=== PATIENT | male | born 1970 | race Caucasian/White ===

== ENCOUNTER → 2016-04-30 | Outpatient (CLI) | payer OTHER ==
[~2016-04-30] MED LIST: ALBUAER2 INH; ASPEC81 PO; ATOR10TA88 PO; BUSP-8 PO; CYAN100020 PO; EFF/375 PO; INSUINJ SC; INSUINJ17 SC; LISI-461 PO; LORA-741 PO; PRLSR20 PO
--- NOTE | 2016-04-30 07:34 | DIAGNOSTIC IMAGING REPORT ---
RENAL ULTRASOUND CLINICAL HISTORY: Renal cyst. COMPARISON STUDY: Abdominal ultrasound January 30, 2013. TECHNIQUE: Sonography of the kidneys and the urinary bladder was performed. FINDINGS: This exam is compromised by suboptimal penetration. The right kidney measures 11.8 x 5.9 x 5.7 cm and the left measures 11.3 x 5.8 x 6.5 cm. There is no definite hydronephrosis. Several hypoechoic structures within each renal sinus are similar to exam of January 30, 2013 and likely reflect parapelvic cysts. There is mild to moderate renal cortical thinning. There is suspected fatty infiltration of the liver. No bladder abnormalities are identified although the bladder is underdistended. IMPRESSION: 1. No change in hypoechoic structures within each renal sinus since exam of January 30, 2013. The findings favor parapelvic cysts. 2. Study compromised by suboptimal penetration. 3. Renal cortical thinning. 4. Suspected fatty liver. Electronically signed by: Jonh Villa M.D. 04/30/2016 7:33 AM Dictated Date/Time: 04/30/2016 7:30 AM
== END | disposition home or self-care (01) ==
LOC: C.ULTR 06:54
PROVIDERS: ATTEND Urology
DX: N28.1 Cyst of kidney, acquired (principal)

== ENCOUNTER → 2016-05-03 | Outpatient (CLI) | payer OTHER ==
[2016-05-03 10:08] LABS: ESTIMATED AVERAGE GLUCOSE 186 mg/dl; HA1C FLAG Normal (Normal)
== END | disposition home or self-care (01) ==
LOC: C.LAB 06:44
PROVIDERS: ATTEND Nurse Practitioner Family
DX: E11.49 Type 2 diabetes mellitus with other diabetic neurological complication (principal)

== ENCOUNTER → 2016-06-07 | Outpatient (CLI) | payer OTHER ==
--- NOTE | 2016-06-07 08:36 | DIAGNOSTIC IMAGING REPORT ---
CHEST CT WITHOUT CONTRAST CT DOSE: 1300.89 mGy.cm HISTORY: R07.81 Rib pain on right side The patient complains of sporadic s TECHNIQUE: Multiaxial CT images of the chest were performed without contrast. COMPARISON: None. FINDINGS: The lungs are clear. The mediastinal vascular structures are within normal limits. No mediastinal or hilar lymphadenopathy. No pleural effusion or pneumothorax. Limited views of the upper abdomen demonstrate a normal liver and spleen. IMPRESSION: No acute process. Electronically signed by: Lance Monroy M.D. 06/07/2016 8:35 AM Dictated Date/Time: 06/07/2016 8:30 AM
== END | disposition home or self-care (01) ==
LOC: C.CTS 08:15
PROVIDERS: ATTEND Physician Assistant
DX: R07.81 Pleurodynia (principal)

== ENCOUNTER → 2016-06-26 | Outpatient (CLI) | payer OTHER ==
[~2016-06-26] MED LIST changes: +ATOR10TA82 PO; -ATOR10TA88 PO
[2016-06-26 10:06] LABS: ALT/SGPT 71 U/L (12-78); AST/SGOT 33 U/L (15-37); BLOOD UREA NITROGEN 18 mg/dl (7-18); BUN/CREATININE RATIO 14.6 (10-20); CALCIUM 8.5 mg/dl (8.5-10.1); CARBON DIOXIDE 25 mmol/L (21-32); CHLORIDE 106 mmol/L (98-107); CHOLESTEROL 163 mg/dl (0-200); GLUCOSE 210 mg/dl (70-99); POTASSIUM 3.8 mmol/L (3.5-5.1); SODIUM 139 mmol/L (136-145); TRIGLYCERIDES 148 mg/dl (0-150); VERY LOW DENSITY LIPOPROT CALC 30 mg/dl
[2016-06-26 10:16] LABS: ALB/GLOB RATIO 1.2 (0.9-2); ALKALINE PHOSPHATASE 120 U/L (45-117); CHOLESTEROL/HDL RATIO 3.9; HDL CHOLESTEROL 42 mg/dl; LDL CHOLESTEROL CALCULATED 91 mg/dl
== END | disposition home or self-care (01) ==
LOC: C.LAB 07:18
PROVIDERS: ATTEND Nurse Practitioner Family
DX: E11.65 Type 2 diabetes mellitus with hyperglycemia (principal)

== ENCOUNTER → 2016-07-03 | Outpatient (CLI) | payer OTHER ==
--- NOTE | 2016-07-03 08:48 | DIAGNOSTIC IMAGING REPORT ---
RIGHT ELBOW 3 VIEWS HISTORY: M25.421 Elbow effusion, [id number] Right COMPARISON: None. FINDINGS: There is no fracture or dislocation. Mild posterior soft tissue swelling. No radiopaque foreign bodies. No elbow effusion. IMPRESSION: Mild posterior soft tissue swelling. No fractures. No elbow effusion. Electronically signed by: Delfino Ortega M.D. 07/03/2016 8:46 AM Dictated Date/Time: 07/03/2016 8:44 AM
== END | disposition home or self-care (01) ==
LOC: C.RAD1850 08:32
PROVIDERS: ATTEND Physician Assistant
DX: M25.421 Effusion, right elbow (principal)

== ENCOUNTER → 2016-07-17 | Outpatient (CLI) | payer OTHER ==
--- NOTE | 2016-07-17 08:07 | DIAGNOSTIC IMAGING REPORT ---
KUB CLINICAL HISTORY: N20.0 Calculus of [id number] Renal cyst pain COMPARISON STUDY: No previous studies for comparison. FINDINGS: The soft tissues, psoas shadows, renal outlines and intestinal gas pattern appear normal. There is no evidence for bowel obstruction. No abnormal abdominal calcifications are seen. IMPRESSION: Normal study. Electronically signed by: Lance Monroy M.D. 07/17/2016 8:06 AM Dictated Date/Time: 07/17/2016 8:06 AM
[2016-07-17 09:53] LABS: ESTIMATED AVERAGE GLUCOSE 200 mg/dl; HA1C FLAG Normal (Normal)
== END | disposition home or self-care (01) ==
LOC: C.RAD 07:31
PROVIDERS: ATTEND Nurse Practitioner Family
DX: N20.0 Calculus of kidney (principal); N28.1 Cyst of kidney, acquired; N39.0 Urinary tract infection, site not specified; E11.49 Type 2 diabetes mellitus with other diabetic neurological complication

== ENCOUNTER → 2016-08-23 | Outpatient (CLI) | payer OTHER ==
--- NOTE | 2016-08-23 10:18 | DIAGNOSTIC IMAGING REPORT ---
MRI OF THE RIGHT ELBOW WITHOUT IV CONTRAST CLINICAL HISTORY: Right upper extremity numbness. 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 Medial elbow pain. Elbow injury several weeks ago. COMPARISON STUDY: Radiographs of the right elbow dated 07/03/2016. TECHNIQUE: MRI of the right elbow was performed utilizing various T1 and T2-weighted sequences in the axial, sagittal, and coronal planes. IV contrast was not administered for this examination. FINDINGS: Normal marrow signal intensity is preserved throughout the visualized bony structures. There is no MRI evidence of fracture. A trace joint effusion is identified. The common extensor and common flexor tendons appear intact. The radial collateral ligament is preserved. There is questionable partial thickness tearing of the ulnar collateral ligament at the humeral insertion. There is also questionable fluid undercutting the ulnar attachment of the ulnar collateral ligament. Subcutaneous soft tissue edema is present along the medial aspect of the elbow. The ulnar nerve appears slightly thickened and edematous posterior to the medial humeral epicondyle on axial images 11 through 16. The triceps tendon at its insertion and the biceps tendon appear preserved. The regional musculature is normal in bulk and signal intensity. IMPRESSION: 1. The ulnar nerve appears mildly thickened and edematous as it passes posterior to the elbow joint. Given the history of medial elbow trauma this may represent contusion of the nerve. Clinical correlation will be required. 2. Question partially thickness tearing of the ulnar collateral ligament. 3. No fracture is seen. 4. Trace joint effusion is identified. Dictated: 08/23/2016 9:19 AM Transcribed: 08/23/2016 10:17 AM [place] Electronically signed by: Stefan Escalera M.D. 08/23/2016 10:22 AM Dictated Date/Time: 08/23/2016 9:19 AM
== END | disposition home or self-care (01) ==
LOC: C.MRIBC 08:23
PROVIDERS: ATTEND Physician Assistant
DX: M25.421 Effusion, right elbow (principal); R29.898 Other symptoms and signs involving the musculoskeletal system; R20.0 Anesthesia of skin

== ENCOUNTER → 2016-11-20 | Outpatient (CLI) | payer OTHER ==
[~2016-11-20] MED LIST changes: -ATOR10TA82 PO; +ATOR10TA88 PO
[2016-11-20 12:59] LABS: ESTIMATED AVERAGE GLUCOSE 177 mg/dl; HA1C FLAG Normal (Normal)
== END | disposition home or self-care (01) ==
LOC: C.LABPBG 09:44
PROVIDERS: ATTEND Nurse Practitioner Family
DX: E11.49 Type 2 diabetes mellitus with other diabetic neurological complication (principal)

== ENCOUNTER → 2017-04-02 | Outpatient (CLI) | payer OTHER ==
[~2017-04-02] MED LIST changes: +ATOR10TA82 PO; -ATOR10TA88 PO
[2017-04-02 10:04] LABS: HEMOGLOBIN A1C 10.4 % (4.5-5.6)
[2017-04-02 10:07] LABS: ALBUMIN 3.9 gm/dl (3.4-5.0); ALT/SGPT 64 U/L (12-78); AST/SGOT 19 U/L (15-37); BLOOD UREA NITROGEN 14 mg/dl (7-18); CALCIUM 8.7 mg/dl (8.5-10.1); CARBON DIOXIDE 25 mmol/L (21-32); CREATININE 1.14 mg/dl (0.60-1.40); GLUCOSE 289 mg/dl (70-99); POTASSIUM 3.7 mmol/L (3.5-5.1); SODIUM 134 mmol/L (136-145)
[2017-04-02 10:10] LABS: ALKALINE PHOSPHATASE 169 U/L (45-117); TOTAL PROTEIN 7.2 gm/dl (6.4-8.2)
== END | disposition home or self-care (01) ==
LOC: C.LAB 06:50
PROVIDERS: ATTEND Internal Medicine
DX: E11.49 Type 2 diabetes mellitus with other diabetic neurological complication (principal); E11.65 Type 2 diabetes mellitus with hyperglycemia; E55.9 Vitamin D deficiency, unspecified

== ENCOUNTER 2017-04-22 07:02 | Emergency (ER) | payer OTHER ==
[~2017-04-22] VITALS: Ht 185.4 cm; Wt 158.1 kg
[2017-04-22 07:06] VITALS: TEMP 36.7; Ht 185.4 cm; Wt 158.1 kg
[2017-04-22] MEDS ORDERED: SODIUM CHLORIDE 0.9% 1000ML 1,000 ML IV STA (07:25)
--- NOTE | 2017-04-22 07:43 | EMERGENCY ROOM VISIT NOTE ---
History Report prepared by [place]: Kaykay Mcdaniel Under the Supervision of: Dr. Brittni Shaw M.D. First contact with patient: 07:14 Chief Complaint: ABDOMINAL PAIN Stated Complaint: SEVERE ABDOMINAL PAIN,BACK PAIN,LEFT ARM Nursing Triage Summary: pain in lower abdomen that radiates into left side of back. pain is more intense when I eat. no vomiting. symptoms started on saturday History of Present Illness The patient is a 46 year old male who presents to the Emergency Room with complaints of constant left sided back pain beginning four days ago. The patient states his pain radiates to his abdomen and groin area. He also reports abdominal pain, diarrhea, chest pain, shortness of breath, cough, intermittent left arm tingling, and nausea. He denies any swelling in his scrotum, urinary burning, blood in his urine, and fever. The patient reports he feels nauseous and his pain worsens when he eats. He denies any change in his chest pain, shortness of breath, or arm tingling when he exerts himself. The patient states his pain in back is relieved with standing. The patient states he has a history of back surgeries. He reports his pain feels unlike the previous times he had back problems. The patient is a former smoker and states he quit smoking about 30 years ago. The patient has a history of diabetes and takes insulin. Source of History: patient Onset: 4 days ago Position: back (lower) Quality: other (radiates) Timing: constant Modifying Factors (Relieving): other (standing) Associated Symptoms: + cough, + chest pain, + abdominal pain, + back pain, + diarrhea, No fevers, No urinary symptoms Review of Systems See HPI for pertinent positives & negatives. A total of 10 systems reviewed and were otherwise negative. Past Medical & Surgical Medical Problems: (1) Diabetes Family History Patient reports no known family medical history. Social History Smoking Status: Former Smoker Marital Status: Housing Status: lives with significant other Occupation Status: unemployed Current/Historical Medications Scheduled Aspirin (Aspirin Ec), 81 MG PO DAILY Atorvastatin (Lipitor), 10 MG PO DAILY Buspirone Hcl (Buspirone Hcl), 10 MG PO BID Cyanocobalamin (Vitamin B12), 2,000 MCG PO QAM Insulin Human NPH (Humulin N), 35 UNITS SQ BIDM Insulin Human Regular (Humulin R), 45 UNITS SQ QAM Insulin Human Regular (Humulin R), 50 UNITS SQ HS Liraglutide (Victoza), 1.8 MG SQ QAM Lisinopril (Zestril), 10 MG PO QAM Omeprazole (Prilosec), 20 MG PO QAM Pregabalin (Lyrica), 50 MG PO BID Venlafaxine Hcl (Effexor), 37.5 TABS PO HS Scheduled PRN Albuterol Hfa (Ventolin Hfa), 2 PUFFS INH Q4H PRN for SOB/Wheezing Hydrocodone/Acetaminophen 5MG/325MG ([place] 5MG/325MG), 1-2 TABLETS PO Q6 PRN for Pain Allergies Coded Allergies: Morphine (Verified Adverse Reaction, Unknown, NAUSEA AND VOMITING, 04/22/17) Physical Exam Vital Signs Date Time Temp Pulse Resp B/P (MAP) Pulse Ox O2 Delivery O2 Flow Rate FiO2 04/22/17 15:28 73 16 153/86 97 04/22/17 14:00 69 16 124/79 97 Room Air 04/22/17 12:15 67 04/22/17 12:05 83 17 124/79 98 Room Air 04/22/17 10:44 65 16 150/78 97 Room Air 04/22/17 08:56 61 16 154/80 04/22/17 07:34 82 04/22/17 07:06 36.7 81 18 144/82 97 Room Air Physical Exam Vital signs reviewed. General: Well-appearing obese male, in no significant distress. HEENT: No scleral icterus, PERRLA, neck supple. Atraumatic. Cardiovascular: Regular rate and rhythm, no extra sounds. Pulmonary: Clear to auscultation bilaterally, normal work of breathing. Abdomen: Soft, nontender, nondistended, positive bowel sounds. Musculoskeletal: Atraumatic, no peripheral edema. Tender to low lumbar region, mild left CVA tenderness. Neurologic: Patient awake alert and oriented x 3. Skin: Warm, dry, no rash : Large suprapubic fat pain inhibits inguinal hernia exam. Otherwise normal. Medical Decision & Procedures ER Provider Diagnostic Interpretation: Radiology results as stated below per my review and radiologist interpretation: CHEST ONE VIEW PORTABLE FINDINGS: The bones soft tissues and hemidiaphragms are normal. The cardiomediastinal silhouette is normal. The lungs are clear. The pulmonary vasculature is normal. IMPRESSION: Negative chest. The above report was generated using voice recognition software. It may contain grammatical, syntax or spelling errors. Electronically signed by: Lance Monroy M.D. ABD/PELVIS NO IV OR ORAL CONT COMPARISON STUDY: None. FINDINGS: The lung bases are clear. The unenhanced liver, spleen, gallbladder, pancreas, kidneys, and adrenal glands are within normal limits. No bowel wall thickening or obstruction. The pelvic organs are unremarkable. No suspicious lytic or blastic osseous lesions. Chronic sigmoid diverticulosis with no evidence for acute diverticulitis. Small calcification immediately posterior to the symphysis pubis felt to be extrinsic to the urinary tract IMPRESSION: No significant abnormality identified within the abdomen or pelvis. Chronic sigmoid diverticulosis. No evidence for acute diverticulitis. Postoperative changes to low lumbar spine consistent with laminectomy and fusion. The above report was generated using voice recognition software. It may contain grammatical, syntax or spelling errors. Electronically signed by: Lance Monroy M.D. ABDOMEN LIMITED (US) FINDINGS: No sonographic evidence of a herniation at the site of clinical concern. No focal fluid. IMPRESSION: 1. No sonographic evidence of hernia, which is in agreement with findings on CT. Electronically signed by: Kentrell Mcgee M.D. Laboratory Results 04/22/17 07:30 Red Blood Count 5.60, Mean Corpuscular Volume 78.8, Mean Corpuscular Hemoglobin 27.5, Mean Corpuscular Hemoglobin Concent 34.9, Mean Platelet Volume 11.3, Neutrophils (%) (Auto) 58.4, Lymphocytes (%) (Auto) 26.1, Monocytes (%) (Auto) 9.3, Eosinophils (%) (Auto) 5.0, Basophils (%) (Auto) 0.6, Neutrophils # (Auto) 3.81, Lymphocytes # (Auto) 1.71, Monocytes # (Auto) 0.61, Eosinophils # (Auto) 0.33, Basophils # (Auto) 0.04 04/22/17 07:30 Test 04/22/17 07:30 04/22/17 07:38 04/22/17 10:24 White Blood Count 6.54 K/uL (4.8-10.8) Red Blood Count 5.60 M/uL (4.7-6.1) Hemoglobin 15.4 g/dL (14.0-18.0) Hematocrit 44.1 % (42-52) Mean Corpuscular Volume 78.8 fL (80-100) Mean Corpuscular Hemoglobin 27.5 pg (25-34) Mean Corpuscular Hemoglobin Concent 34.9 g/dl (32-36) Platelet Count 153 K/uL (130-400) Mean Platelet Volume 11.3 fL (7.4-10.4) Neutrophils (%) (Auto) 58.4 % Lymphocytes (%) (Auto) 26.1 % Monocytes (%) (Auto) 9.3 % Eosinophils (%) (Auto) 5.0 % Basophils (%) (Auto) 0.6 % Neutrophils # (Auto) 3.81 K/uL (1.4-6.5) Lymphocytes # (Auto) 1.71 K/uL (1.2-3.4) Monocytes # (Auto) 0.61 K/uL (0.11-0.59) Eosinophils # (Auto) 0.33 K/uL (0-0.5) Basophils # (Auto) 0.04 K/uL (0-0.2) RDW Standard Deviation 38.9 fL (36.4-46.3) RDW Coefficient of Variation 13.9 % (11.5-14.5) Immature Granulocyte % (Auto) 0.6 % Immature Granulocyte # (Auto) 0.04 K/uL (0.00-0.02) Anion Gap 8.0 mmol/L (3-11) Est Creatinine Clear Calc Drug Dose 135.6 ml/min Estimated GFR () 96.0 Estimated GFR (Non- 82.8 BUN/Creatinine Ratio 10.0 (10-20) Calcium Level 8.4 mg/dl (8.5-10.1) Magnesium Level 2.0 mg/dl (1.8-2.4) Total Bilirubin 0.5 mg/dl (0.2-1) Direct Bilirubin 0.1 mg/dl (0-0.2) Aspartate Amino Transf (AST/SGOT) 40 U/L (15-37) Alanine Aminotransferase (ALT/SGPT) 89 U/L (12-78) Alkaline Phosphatase 152 U/L (45-117) Total Creatine Kinase 98 U/L (39-308) Creatine Kinase MB 0.7 ng/ml (0.5-3.6) Creatine Kinase MB Ratio 0.7 (0-3.0) Total Protein 6.8 gm/dl (6.4-8.2) Albumin 3.5 gm/dl (3.4-5.0) Bedside Troponin I < 0.030 ng/ml (0-0.045) Urine Color DK YELLOW Urine Appearance CLEAR (CLEAR) Urine pH 6.0 (4.5-7.5) Urine Specific [place] 1.024 (1.000-1.030) Urine Protein NEG (NEG) Urine Glucose (UA) 3+ (NEG) Urine Ketones NEG (NEG) Urine Occult Blood NEG (NEG) Urine Nitrite NEG (NEG) Urine Bilirubin NEG (NEG) Urine Urobilinogen POS (NEG) Urine Leukocyte Esterase NEG (NEG) Laboratory results per my review. Medications Administered Medications (Trade) Dose Ordered Sig/Lea Route Start Time Stop Time Status Last Admin Dose Admin Sodium Chloride 1,000 ml @ 150 mls/hr Q6H40M STAT IV 04/22/17 07:25 04/22/17 14:04 DC 04/22/17 08:55 150 MLS/HR Hydromorphone HCl (Dilaudid Inj) 1 mg NOW STAT IV 04/22/17 08:55 04/22/17 08:56 DC 04/22/17 09:03 1 MG Ondansetron HCl (Zofran Inj) 4 mg NOW STAT IV 04/22/17 08:55 04/22/17 08:56 DC 04/22/17 09:02 4 MG ECG Indication: abdominal pain Rate (beats per minute): 77 Rhythm: normal sinus Findings: no acute ischemic change, no ectopy Change: EKG interpreted by me. ED Course 0721: Past medical records reviewed. The patient was evaluated in room B5. A complete history and physical examination was performed. 0725: Ordered Sodium Chloride 1000 ml @ 150 mls/hr IV. 0855: Ordered Zofran Inj 4 mg IV, Dilaudid Inj 1 mg IV. 1157: I updated the patient on his test results. I will order an ultrasound on the patient. 1511: I updated the patient on his ultrasound results. 1515: Upon reevaluation, the patient appeared to have improvement of his symptoms. I discussed findings with him. He verbalized agreement of the treatment plan. The patient was discharged home. Medical Decision Differential diagnosis: Etiologies such as appendicitis, diverticulitis, PUD, biliary pathology, UTI, pancreatitis, obstruction, mesenteric ischemia, aortic pathology, infections, inflammatory bowel disease, renal colic, ACS, as well as others were entertained. This patient was evaluated and appeared to be in significant discomfort. IV access was obtained and laboratory work was drawn. Patient was hydrated with normal saline solution and given IV Dilaudid and Zofran. The patient was placed on the gambling monitor and found to be in a normal sinus rhythm. EKG reveals no evidence of acute ischemic changes. Laboratory work is unrevealing. Cardiac enzymes are normal. Chest x-ray was obtained and is clear. CT scan abdomen and pelvis was performed and reveals postsurgical changes to the lumbar spine without evidence of acute inflammatory process. Given the patient's inguinal pain, formal ultrasound of the left inguinal region was performed and reveals no evidence of hernia. I suspect the patient's pain is a lumbar radiculopathy. He does have a long history of back problems and has scheduled an appointment for evaluation by his spine surgeon in 1 week. Patient was given a prescription for [place] to be used as needed. He will return to the emergency department for worsening of symptoms or any medical concerns. Medication Reconcilliation Current Medication List: was personally reviewed by me Blood Pressure Screening Patient's blood pressure: Elevated blood pressure Blood pressure disposition: Elevated BP felt to be situational Impression Primary Impression: Abdominal pain, LLQ (left lower quadrant) Additional Impression: Lumbar radiculopathy Scribe Attestation The scribe's documentation has been prepared under my direction and personally reviewed by me in its entirety. I confirm that the note above accurately reflects all work, treatment, procedures, and medical decision making performed by me. Departure Information Dispostion Home / Self-Care Prescriptions Hydrocodone/Acetaminophen 5MG/325MG ([place] 5MG/325MG) Tab 1-2 TABLETS PO Q6 Y for Pain, #20 TAB Prov: Brittni Shaw M.D. 04/22/17 Referrals RV. Briceno MD (PCP) Forms Call Back Authorization, HOME CARE DOCUMENTATION FORM, IMPORTANT VISIT INFORMATION Patient Instructions My [facility] Additional Instructions Diagnosis: Left lower quadrant abdominal pain, lumbar radiculopathy [place] one to 2 tabs every 6 hours as needed for severe pain. Do not drive or take Tylenol with this medication. Follow-up with your spine surgeon for reevaluation as scheduled on Saturday. Contact your primary care physician for reevaluation this week. Return to the emergency department for worsening of symptoms or any medical concerns. Problem Qualifiers
--- NOTE | 2017-04-22 07:47 | DIAGNOSTIC IMAGING REPORT ---
CHEST ONE VIEW PORTABLE CLINICAL HISTORY: SOB, arm pain dyspnea COMPARISON STUDY: 07/04/2015 FINDINGS: The bones soft tissues and hemidiaphragms are normal. The cardiomediastinal silhouette is normal. The lungs are clear. The pulmonary vasculature is normal. IMPRESSION: Negative chest. The above report was generated using voice recognition software. It may contain grammatical, syntax or spelling errors. Electronically signed by: Lance Monroy M.D. 04/22/2017 7:46 AM Dictated Date/Time: 04/22/2017 7:45 AM
[2017-04-22 07:49] LABS: BASO % 0.6 %; BASO ABS # 0.04 K/uL (0-0.2); EOS ABS # 0.33 K/uL (0-0.5); HEMATOCRIT 44.1 % (42-52); HEMOGLOBIN 15.4 g/dL (14.0-18.0); IG# 0.04 K/uL (0.00-0.02); LYMPH % 26.1 %; LYMPH ABS # 1.71 K/uL (1.2-3.4); MEAN CELL VOLUME 78.8 fL (80-100); MEAN CORPUSCULAR HEMOGLOBIN 27.5 pg (25-34); MEAN CORPUSCULAR HGB CONC 34.9 g/dl (32-36); MEAN PLATELET VOLUME 11.3 fL (7.4-10.4); MONO % 9.3 %; MONO ABS # 0.61 K/uL (0.11-0.59); NEUT % 58.4 %; NEUT ABS # 3.81 K/uL (1.4-6.5); PLATELET COUNT 153 K/uL (130-400); RED CELL DISTRIBUTION WIDTH CV 13.9 % (11.5-14.5); RED CELL DISTRIBUTION WIDTH SD 38.9 fL (36.4-46.3); WHITE BLOOD COUNT 6.54 K/uL (4.8-10.8)
[2017-04-22] MEDS ORDERED: VNTHFA/IN INH (07:53)
[2017-04-22] MEDS ORDERED: ASPI81TA28 PO (07:53)
[2017-04-22] MEDS ORDERED: LYR50 PO (07:53)
[2017-04-22] MEDS ORDERED: INSHNI SQ (07:53)
[2017-04-22] MEDS ORDERED: LIRA18IN SQ (07:53)
[2017-04-22] MEDS ORDERED: INSPMPRGR SQ ×2 (07:53)
[2017-04-22 08:11] LABS: ALBUMIN 3.5 gm/dl (3.4-5.0); CALCIUM 8.4 mg/dl (8.5-10.1); CREATININE 1.07 mg/dl (0.60-1.40); POTASSIUM 3.8 mmol/L (3.5-5.1)
[2017-04-22 08:16] LABS: CKMB 0.7 ng/ml (0.5-3.6); TOTAL PROTEIN 6.8 gm/dl (6.4-8.2)
--- NOTE | 2017-04-22 08:40 | DIAGNOSTIC IMAGING REPORT ---
ABD/PELVIS NO IV OR ORAL CONT CT DOSE: 1139.59 mGycm HISTORY: Abdominal and pelvic pain L flank abd pain TECHNIQUE: Multiaxial CT images of the abdomen and pelvis were performed without contrast. A dose lowering technique was utilized adhering to the principles of ALARA. COMPARISON STUDY: None. FINDINGS: The lung bases are clear. The unenhanced liver, spleen, gallbladder, pancreas, kidneys, and adrenal glands are within normal limits. No bowel wall thickening or obstruction. The pelvic organs are unremarkable. No suspicious lytic or blastic osseous lesions. Chronic sigmoid diverticulosis with no evidence for acute diverticulitis. Small calcification immediately posterior to the symphysis pubis felt to be extrinsic to the urinary tract IMPRESSION: No significant abnormality identified within the abdomen or pelvis. Chronic sigmoid diverticulosis. No evidence for acute diverticulitis. Postoperative changes to low lumbar spine consistent with laminectomy and fusion. The above report was generated using voice recognition software. It may contain grammatical, syntax or spelling errors. Electronically signed by: Lance Monroy M.D. 04/22/2017 8:39 AM Dictated Date/Time: 04/22/2017 8:33 AM
[2017-04-22] MEDS ORDERED: ONDANSETRON INJ 2 MG/ML 2 ML VIAL IV STA (08:55)
[2017-04-22] MEDS ORDERED: HYDROmorphone INJ 1 MG/ML SYR IV STA (08:55)
--- NOTE | 2017-04-22 14:51 | DIAGNOSTIC IMAGING REPORT ---
ABDOMEN LIMITED (US) CLINICAL HISTORY: 46 years-old Male presenting with L inguinal. TECHNIQUE: Real-time grayscale ultrasound imaging of the left inguinal region was performed at the site of clinical concern. COMPARISON: CT performed earlier the same day. FINDINGS: No sonographic evidence of a herniation at the site of clinical concern. No focal fluid. IMPRESSION: 1. No sonographic evidence of hernia, which is in agreement with findings on CT. Electronically signed by: Kentrell Mcgee M.D. 04/22/2017 2:50 PM Dictated Date/Time: 04/22/2017 2:46 PM
[2017-04-22] MEDS ORDERED: HYDR-5688 PO (14:58)
[2017-04-22 15:28] VITALS: BP 153/86; PULSE 73; O2SAT 97
== END 2017-04-22 15:33 | disposition home or self-care (01) ==
LOC: C.EDB 07:04
DX: M54.16 Radiculopathy, lumbar region (principal); Z87.891 Personal history of nicotine dependence; E11.9 Type 2 diabetes mellitus without complications; Z79.4 Long term (current) use of insulin; Z79.899 Other long term (current) drug therapy; E66.9 Obesity, unspecified; Z98.890 Other specified postprocedural states; Z68.42 Body mass index [BMI] 45.0-49.9, adult

== ENCOUNTER → 2017-05-02 | Outpatient (CLI) | payer OTHER ==
[~2017-05-02] MED LIST changes: -ALBUAER2 INH; -ASPEC81 PO; +ASPI81TA28 PO; +HYDR-5688 PO; +INSHNI SQ; +INSPMPRGR SQ; -INSUINJ SC; -INSUINJ17 SC; +LIRA18IN SQ; -LORA-741 PO; +LYR50 PO; +VNTHFA/IN INH
--- NOTE | 2017-05-02 08:40 | DIAGNOSTIC IMAGING REPORT ---
GALLBLADDER-ABD LIMITED CLINICAL HISTORY: 46 years-old Male presenting with R11.0 Mild [id number] Abnormal liver enzymes. TECHNIQUE: Real-time grayscale and limited color Doppler ultrasound imaging of the abdomen limited to the right upper quadrant was performed. COMPARISON: CT from 04/22/2017. FINDINGS: Pancreas: Visualized portions of the pancreatic head and body normal. Liver: Markedly hyperechogenic parenchyma with obscuration of the right hemidiaphragm, likely indicating marked hepatic steatosis. The liver measures 20 cm in maximal sagittal dimension. Limited sonographic evaluation for hepatic mass given steatosis. Main portal vein patent with normal directional flow. Biliary: No intrahepatic biliary ductal dilatation. Common bile duct measures up to 5 mm in diameter. Gallbladder: No evidence of gallstones, gallbladder wall thickening, gallbladder distention, or pericholecystic fluid or inflammatory change. Sonographic Valencia's sign negative. Right kidney: Few parapelvic cysts noted. No hydronephrosis. Ascites: None. IMPRESSION: Hepatic steatosis. Correlate with liver function tests to exclude steatohepatitis as a cause for abdominal pain. Electronically signed by: Kentrell Mcgee M.D. 05/02/2017 8:39 AM Dictated Date/Time: 05/02/2017 8:37 AM
== END | disposition home or self-care (01) ==
LOC: C.ULTRBC 08:03
PROVIDERS: ATTEND Internal Medicine
DX: R11.0 Nausea (principal); R74.8 Abnormal levels of other serum enzymes

== ENCOUNTER → 2017-05-16 | Outpatient (CLI) | payer OTHER ==
[~2017-05-16] MED LIST changes: +SINCALIDE IV ONE; +SODIUM CHLORIDE 0.9% IV ONE
--- NOTE | 2017-05-16 09:52 | DIAGNOSTIC IMAGING REPORT ---
HEPATOBILIARY EF IMAGING HISTORY: Reflux. Pain. Nausea. K21.9 Acid [id number] Fatty khwpbY23.0 Mild [id number] Abnorma COMPARISON: None. TECHNIQUE: Immediately following the intravenous administration of 5.6 mCi Tc-99m Choletec, dynamic anterior abdominal imaging pre/post 3.1 mcg of Kinevac was performed. FINDINGS: Uniform hepatic tracer accumulation is shown. Prompt intrahepatic biliary excretion is seen. The gallbladder, common bile duct, and small bowel are all visualized by 15 minutes. This appearance represents the normal sequence of biliary excretion. The gallbladder ejection fraction following administration of Kinevac was 91 % (normal >35%). IMPRESSION: 1. No evidence for cystic duct obstruction. 2. Gallbladder ejection fraction calculated to be 91 %. The above report was generated using voice recognition software. It may contain grammatical, syntax or spelling errors. Electronically signed by: Lance Monroy M.D. 05/16/2017 9:51 AM Dictated Date/Time: 05/16/2017 9:49 AM
== END | disposition home or self-care (01) ==
LOC: C.NUCL 07:39
PROVIDERS: ATTEND Internal Medicine
DX: R74.8 Abnormal levels of other serum enzymes (principal); K21.9 Gastro-esophageal reflux disease without esophagitis; K76.0 Fatty (change of) liver, not elsewhere classified; R11.0 Nausea

== ENCOUNTER → 2017-06-05 | Outpatient (CLI) | payer OTHER ==
[~2017-06-05] MED LIST changes: +CHOL1TAB46 PO; -CYAN100020 PO; -EFF/375 PO; +FRCT/ PO; -HYDR-5688 PO; +OMEP40CA41 PO; -PRLSR20 PO; -SINCALIDE IV ONE; -SODIUM CHLORIDE 0.9% IV ONE; +TRAZ50TA35 PO
[2017-06-05 09:52] LABS: BASO % 0.6 %; BASO ABS # 0.04 K/uL (0-0.2); EOS % 3.7 %; EOS ABS # 0.24 K/uL (0-0.5); HEMOGLOBIN 15.2 g/dL (14.0-18.0); IG# 0.05 K/uL (0.00-0.02); LYMPH % 21.9 %; LYMPH ABS # 1.42 K/uL (1.2-3.4); MEAN CELL VOLUME 77.6 fL (80-100); MEAN CORPUSCULAR HEMOGLOBIN 27.4 pg (25-34); MEAN CORPUSCULAR HGB CONC 35.3 g/dl (32-36); MEAN PLATELET VOLUME 12.7 fL (7.4-10.4); MONO ABS # 0.71 K/uL (0.11-0.59); NEUT ABS # 4.02 K/uL (1.4-6.5); PLATELET COUNT 208 K/uL (130-400); RED CELL DISTRIBUTION WIDTH SD 39.4 fL (36.4-46.3); WHITE BLOOD COUNT 6.48 K/uL (4.8-10.8)
[2017-06-05 10:46] LABS: ALBUMIN 3.6 gm/dl (3.4-5.0); ALT/SGPT 55 U/L (12-78); BLOOD UREA NITROGEN 16 mg/dl (7-18); CARBON DIOXIDE 23 mmol/L (21-32); CREATININE 1.12 mg/dl (0.60-1.40); GLUCOSE 213 mg/dl (70-99); POTASSIUM 3.8 mmol/L (3.5-5.1); SODIUM 137 mmol/L (136-145)
[2017-06-05 10:52] LABS: ALKALINE PHOSPHATASE 135 U/L (45-117); AST/SGOT 23 U/L (15-37); TOTAL PROTEIN 6.7 gm/dl (6.4-8.2); TRANSFERRIN 201 mg/dl (200-360)
[2017-06-05 11:07] LABS: HEP C IGG 13 YRS+OLDER_RFLX NEG (NEG)
[2017-06-06 14:51] LABS: ANA SCREEN TC 249X NEGATIVE (NEGATIVE); HEPATITIS B CORE IGM TC51854R NON-REACTIVE (NON-REACTIVE)
== END | disposition home or self-care (01) ==
LOC: C.LAB 07:11
PROVIDERS: ATTEND Registered Nurse
DX: K75.81 Nonalcoholic steatohepatitis (NASH) (principal)

== ENCOUNTER → 2017-06-18 | Day surgery (SDC) | payer OTHER ==
[2017-06-03 08:15] VITALS: BMI 48.0
[~2017-06-18] VITALS: Ht 182.9 cm; Wt 161.4 kg
[~2017-06-18] MED LIST changes: +LIDOCAINE HCL 2% 2 ML VIAL (20MG/ML) ONE; +MIDAZOLAM HCL 1 MG/ML 2ML VIAL ONE; +ONDANSETRON INJ 2 MG/ML 2 ML VIAL ONE; +PROPOFOL IV EMULSION 10 MG/ML 20 ML VIAL IV ONE; +SODIUM CHLORIDE 0.9% 500ML 500 ML IV ONE
[2017-06-18 08:46] VITALS: Ht 182.9 cm; Wt 161.4 kg
--- NOTE | 2017-06-18 08:51 | Endo History and Physical ---
History & Physical Date of Service: Jun 18, 2017. Chief Complaint: Abdominal pain, Nausea Referring Physician: Dr. Jamison History of Present Illness 46 yo CM who presents for EGD secondary to abdominal pain and nausea. Past Medical History Diabetes, Arthritis, Reflux, High Cholesterol, Sleep Apnea, Hypertension Past Surgical History Hx Cardiac Surgery: No Hx Internal Defibrillator: No Hx Pacemaker: No Hx Abdominal Surgery: Yes (APPY) Hx of Implantable Prosthesis: No Hx Post-Op Nausea and Vomiting: No Hx Cancer Surgery: No Hx Thoracic Surgery: No Hx Orthopedic: Yes (RIGHT ANKLE SURGERY X4, LUMBAR FUSION, RT/LEFT ARTHROSCOPY) Hx Urinary Tract Surgery: No Family History None Social History Smoking Status: Never Smoker Hx Substance Use: No Hx Alcohol Use: No Allergies Coded Allergies: Morphine (Verified Adverse Reaction, Unknown, NAUSEA AND VOMITING, 06/03/17 ) Current Medications Reported Home Medications Medications Dose Route/Sig Max Daily Dose Days Date Category Dose Instructions Vitamin D3 (Cholecalciferol) 5,000 Unit Tab 1 Tab PO QPM 06/03/17 Reported Trazodone (Trazodone HCl) 50 Mg Tab 50 Mg PO HS PRN 06/03/17 Reported Fioricet (Acetaminophen/Butalbital/Caffeine) 1 Ea Tab 1 Tab PO DIRECTED PRN 06/03/17 Reported Prilosec (Omeprazole) 40 Mg Cap 40 Mg PO QAM 06/03/17 Reported Lyrica (Pregabalin) 50 Mg Cap 50 Mg PO TID 04/22/17 Reported Victoza (Liraglutide) 18 Mg/3 Ml Inj 1.8 Mg SQ QAM 04/22/17 Reported CURRENTLY OUT OF RX "FIGHTING WITH INSURANCE COMPANY TO PAY FOR" Humulin N (Insulin Human NPH) 100 Units/Ml Susp 1 Dose SQ BIDM 04/22/17 Reported TAKES 44UNITS IN AM TAKES 50 UNITS IN PM Humulin R (Insulin Human Regular) 1 Ea Inj 1 Dose SQ BID 04/22/17 Reported TAKES 30 UNITS BEFORE LUNCH TAKES 35 UNITS WITH DINNER Aspirin Ec (Aspirin) 81 Mg Tab 81 Mg PO 3XWK 04/22/17 Reported Ventolin Hfa (Albuterol) 200 Puffs/18751 Mcg Aers 2 Puffs INH Q4H PRN 04/22/17 Reported Zestril (Lisinopril) 10 Mg Tab 10 Mg PO QAM 07/04/15 Reported Buspirone Hcl 10 Mg Tab 10 Mg PO BID 07/04/15 Reported Lipitor (Atorvastatin Calcium) 10 Mg Tab 10 Mg PO HS 04/14/15 Reported Vital Signs Weight (Kilograms): 161.36 Height (Feet): 6 Height (Inches): 0 Date Time Temp Pulse Resp B/P (MAP) Pulse Ox O2 Delivery O2 Flow Rate FiO2 06/18/17 08:45 37.1 85 20 139/90 (106) 96 Room Air Physical Exam General Appearance: WD/WN, no apparent distress Respiratory/Chest: Auscultation: breath sounds normal Cardiovascular: Heart Auscultation: RRR Abdomen: Bowel Sounds: normal Inspection & Palpation: soft, non-distended, no tenderness, guarding & rebound Assessment and Plan Assessment: 46 yo CM who presents for EGD secondary to abdominal pain and nausea. Plan: Proceed with EGD.
--- NOTE | 2017-06-18 10:14 | Discharge Instructions ---
Endoscopy Patient Instructions Date / Procedure(s) Performed Jun 18, 2017. EGD Allergy Information Coded Allergies: Morphine (Verified Adverse Reaction, Unknown, NAUSEA AND VOMITING, 06/03/17 ) Discharge Date / Findings Jun 18, 2017. Gastric antrum biopsies Retained gastric contents Medication Instructions OK to resume all medications today as prescribed Reported Home Medications Medications Dose Route/Sig Max Daily Dose Days Date Category Dose Instructions Vitamin D3 (Cholecalciferol) 5,000 Unit Tab 1 Tab PO QPM 06/03/17 Reported Trazodone (Trazodone HCl) 50 Mg Tab 50 Mg PO HS PRN 06/03/17 Reported Fioricet (Acetaminophen/Butalbital/Caffeine) 1 Ea Tab 1 Tab PO DIRECTED PRN 06/03/17 Reported Prilosec (Omeprazole) 40 Mg Cap 40 Mg PO QAM 06/03/17 Reported Lyrica (Pregabalin) 50 Mg Cap 50 Mg PO TID 04/22/17 Reported Victoza (Liraglutide) 18 Mg/3 Ml Inj 1.8 Mg SQ QAM 04/22/17 Reported CURRENTLY OUT OF RX "FIGHTING WITH INSURANCE COMPANY TO PAY FOR" Humulin N (Insulin Human NPH) 100 Units/Ml Susp 1 Dose SQ BIDM 04/22/17 Reported TAKES 44UNITS IN AM TAKES 50 UNITS IN PM Humulin R (Insulin Human Regular) 1 Ea Inj 1 Dose SQ BID 04/22/17 Reported TAKES 30 UNITS BEFORE LUNCH TAKES 35 UNITS WITH DINNER Aspirin Ec (Aspirin) 81 Mg Tab 81 Mg PO 3XWK 04/22/17 Reported Ventolin Hfa (Albuterol) 200 Puffs/96930 Mcg Aers 2 Puffs INH Q4H PRN 04/22/17 Reported Zestril (Lisinopril) 10 Mg Tab 10 Mg PO QAM 07/04/15 Reported Buspirone Hcl 10 Mg Tab 10 Mg PO BID 07/04/15 Reported Lipitor (Atorvastatin Calcium) 10 Mg Tab 10 Mg PO HS 04/14/15 Reported Provider Instructions Activity Restrictions - No exercising or heavy lifting for 24 hours. - Do not drink alcohol the day of the procedure. - Do not drive a car or operate machinery until the day after the procedure. - Do not make any important decisions or sign important papers in 24 hours after the procedure. Following Day: - Return to full activity which may include returning to work/school. Diet Start your diet with liquids and light foods (jello, soup, juice, toast). Then eat your usual diet if not nauseated. Treatment For Common After Affects For mild abdominal pain, bloating, or excessive gas: - Rest - Eat lightly - Lie on right side Follow-Up Information Follow-up with DR. SHANNAN ORR as scheduled Anesthesia Information What You Should Know You have had a procedure that required some medicine to reduce anxiety and discomfort. This treatment is called moderate sedation. After receiving the treatment, you may be sleepy, but you will be able to breathe on your own. The effects of the treatment may last for several hours. Follow these instructions along with Activity/Diet recommendations noted above: * Do NOT do anything where dizziness or clumsiness would be dangerous. * Rest quietly at home today, then you can be up and about tomorrow. * Have a responsible person stay with you the rest of today. * You may have had an I.V. today. If so, you may take the dressing off later today. Recommendations Call your doctor if: * Trouble breathing * Continuous vomiting for more than 24 hours * Temperature above 101 degrees * Severe abdominal pain or bloating * Pain not relieved by pain medicine ordered * There is increased drainage or redness from any incision * A large amount of rectal bleeding greater than 2-3 tablespoons. (If you had a polyp/s removed or have hemorrhoids, a small amount of blood - from the rectum is to be expected.) * You have any unanswered questions or concerns. IN THE EVENT OF A SERIOUS EMERGENCY, GO TO THE NEAREST EMERGENCY ROOM Your discharge instructions were prepared by provider Darnell Patton. Patient Instructions Signature Page Gatito Mcfarland Patient (or Guardian) Signature/Date: I have read and understand the instructions given to me by my caregivers. Caregiver/RN/Doctor Signature/Date: The above-named patient and/or guardian has received patient instructions on this date. + Original Patient Signature Page (only) stays with chart. Please make copy for patient.
[2017-06-18 10:40] VITALS: BP 131/96; PULSE 79; O2SAT 97
--- NOTE | 2017-06-18 11:00 | GI REPORT ---
Procedure Date: 06/18/2017 9:34 AM Procedure: Upper GI endoscopy Indications: Epigastric abdominal pain, Nausea Medicines: Monitored Anesthesia Care Complications: No immediate complications. Estimated Blood Loss: Estimated blood loss: none. Procedure: Pre-Anesthesia Assessment: - Prior to the procedure, a History and Physical was performed, and patient medications and allergies were reviewed. The patient's tolerance of previous anesthesia was also reviewed. The risks and benefits of the procedure and the sedation options and risks were discussed with the patient. All questions were answered, and informed consent was obtained. Prior Anticoagulants: The patient has taken aspirin, last dose was 1 day prior to procedure. ASA Grade Assessment: III - A patient with severe systemic disease. After reviewing the risks and benefits, the patient was deemed in satisfactory condition to undergo the procedure. After obtaining informed consent, the endoscope was passed under direct vision. Throughout the procedure, the patient's blood pressure, pulse, and oxygen saturations were monitored continuously. The On-site loaner was introduced through the mouth, and advanced to the second part of duodenum. The upper GI endoscopy was accomplished without difficulty. The patient tolerated the procedure well. Findings: The esophagus was normal. A medium amount of food (residue) was found in the gastric fundus and on the greater curvature of the stomach. Biopsies were taken with a cold forceps in the gastric antrum for histology. The examined duodenum was normal. Impression: - Normal esophagus. - A medium amount of food (residue) in the stomach. - Normal examined duodenum. - Biopsies were taken with a cold forceps for histology in the gastric antrum. Recommendation: - Resume previous diet. - Continue present medications. - Await pathology results. - Return to primary care physician as previously scheduled. Darnell Patton, 06/18/2017 10:34:55 AM This report has been signed electronically. Note Initiated On: 06/18/2017 9:34 AM I attest to the content of the Intraoperative Record and orders documented therein, exceptions below
--- NOTE | 2017-06-18 11:01 | Anesthesiology Progress Note ---
Anesthesia Post Op Note Date & Time Jun 18, 2017 at 11:01 Vital Signs Pain Intensity: 0 Vital Signs Past 12 Hours Date Time Temp Pulse Resp B/P (MAP) Pulse Ox O2 Delivery O2 Flow Rate FiO2 06/18/17 10:40 79 20 131/96 (108) 97 Room Air 06/18/17 10:25 84 20 157/105 (122) 97 Room Air 06/18/17 10:10 89 20 147/96 (113) 94 Room Air 06/18/17 08:45 37.1 85 20 139/90 (106) 96 Room Air Notes Mental Status: alert / awake / arousable, participated in evaluation Pt Amnestic to Procedure: Yes Nausea / Vomiting: adequately controlled Pain: adequately controlled Airway Patency, RR, SpO2: stable & adequate BP & HR: stable & adequate Hydration State: stable & adequate Anesthetic Complications: no major complications apparent
== END | disposition home or self-care (01) ==
LOC: C.GI 08:31
PROVIDERS: ATTEND Internal Medicine
DX: R10.9 Unspecified abdominal pain (principal); R11.0 Nausea; E11.9 Type 2 diabetes mellitus without complications; M19.90 Unspecified osteoarthritis, unspecified site; K21.9 Gastro-esophageal reflux disease without esophagitis; E78.00 Pure hypercholesterolemia, unspecified; G47.30 Sleep apnea, unspecified; I10 Essential (primary) hypertension; Z88.5 Allergy status to narcotic agent; Z79.4 Long term (current) use of insulin; Z79.82 Long term (current) use of aspirin; Z79.899 Other long term (current) drug therapy

== ENCOUNTER → 2017-06-26 | Outpatient (CLI) | payer OTHER ==
[~2017-06-26] MED LIST changes: -LIDOCAINE HCL 2% 2 ML VIAL (20MG/ML) ONE; -MIDAZOLAM HCL 1 MG/ML 2ML VIAL ONE; -ONDANSETRON INJ 2 MG/ML 2 ML VIAL ONE; -PROPOFOL IV EMULSION 10 MG/ML 20 ML VIAL IV ONE; -SODIUM CHLORIDE 0.9% 500ML 500 ML IV ONE
--- NOTE | 2017-06-26 13:05 | DIAGNOSTIC IMAGING REPORT ---
NUCLEAR GASTRIC EMPTYING STUDY CLINICAL HISTORY: Diabetes. Gastroparesis. COMPARISON STUDY: Abdominal CT dated 04/22/2017. TECHNIQUE: Following the oral administration of 1.1 mCi of technetium 99m sulfur colloid in egg sandwich and 8 ounces of water, static abdominal images are obtained anteriorly and posteriorly at 0 minutes, 1 hour, 2 hour, and 4 hour time intervals. Gastric emptying was calculated utilizing the geometric mean method. FINDINGS: There is approximately 69% activity remaining at the 1 hour time interval, 46% remaining at the 2 hour time interval (normal is less than 60%), and 0% activity remaining at the 4 hour time interval (normal is less than 10%). IMPRESSION: Findings are consistent with normal gastric emptying for solids. Electronically signed by: Stefan Escalera M.D. 06/26/2017 1:03 PM Dictated Date/Time: 06/26/2017 1:01 PM
== END | disposition home or self-care (01) ==
LOC: C.NUCL 07:41
PROVIDERS: ATTEND Internal Medicine
DX: E11.9 Type 2 diabetes mellitus without complications (principal); K31.89 Other diseases of stomach and duodenum

== ENCOUNTER → 2017-07-26 | Outpatient (CLI) | payer OTHER | END | disposition home or self-care (01) | LOC: C.PATHSPEC 15:17 | PROVIDERS: ATTEND Urology | DX: N40.1 Benign prostatic hyperplasia with lower urinary tract symptoms (principal); R31.29 Other microscopic hematuria; R30.0 Dysuria; N45.1 Epididymitis; R31.0 Gross hematuria; R97.20 Elevated prostate specific antigen [PSA] ==

== ENCOUNTER → 2017-07-26 | Outpatient (CLI) | payer OTHER ==
[2017-07-26 10:07] LABS: HEMOGLOBIN A1C 8.8 % (4.5-5.6)
== END | disposition home or self-care (01) ==
LOC: C.LAB 07:35
PROVIDERS: ATTEND Nurse Practitioner Family
DX: E11.42 Type 2 diabetes mellitus with diabetic polyneuropathy (principal); K76.0 Fatty (change of) liver, not elsewhere classified

== ENCOUNTER → 2017-08-05 | Outpatient (CLI) | payer OTHER ==
[2017-08-02 13:21] LABS: ALBUMIN 3.4 gm/dl (3.4-5.0); ALKALINE PHOSPHATASE 112 U/L (45-117); ALT/SGPT 67 U/L (12-78); AST/SGOT 31 U/L (15-37); BLOOD UREA NITROGEN 13 mg/dl (7-18); CALCIUM 8.6 mg/dl (8.5-10.1); CARBON DIOXIDE 26 mmol/L (21-32); CREATININE 1.33 mg/dl (0.60-1.40); GLUCOSE 213 mg/dl (70-99); POTASSIUM 3.8 mmol/L (3.5-5.1); SODIUM 139 mmol/L (136-145); TOTAL PROTEIN 6.5 gm/dl (6.4-8.2)
[~2017-08-05] MED LIST changes: +OPTIRAY 320 IV PRN
--- NOTE | 2017-08-05 08:57 | DIAGNOSTIC IMAGING REPORT ---
(TESTICULAR) SCROTUM-CONT CLINICAL HISTORY: 46 years-old Male presenting with R30.0 Dysuria N40.1 Benign prostatic hyperplasia with urinary obstruction. TECHNIQUE: Real-time grayscale and color and spectral Doppler ultrasound imaging of the scrotum was performed. COMPARISON: None. FINDINGS: Right testis: Normal echogenicity and echotexture. Testis measures 3.7 x 2.7 x 3.4 cm. Normal color Doppler flow and arterial and venous waveforms in the testicular parenchyma. Epididymal head normal. Trace hydrocele. No varicocele. Left testis: Normal echogenicity and echotexture. Testis measures 4.5 x 2.7 x 3.2 cm. Normal color Doppler flow and arterial and venous waveforms in the testicular parenchyma. Epididymal head normal. Trace hydrocele. No varicocele. IMPRESSION: No evidence of testicular torsion or epididymitis-orchitis. Electronically signed by: Kentrell Mcgee M.D. 08/05/2017 8:55 AM Dictated Date/Time: 08/05/2017 8:50 AM
--- NOTE | 2017-08-05 09:24 | DIAGNOSTIC IMAGING REPORT ---
CT UROGRAM CLINICAL HISTORY: Dysuria. Benign prostatic hyperplasia. COMPARISON STUDY: Abdominal CT dated 04/22/2017. TECHNIQUE: Before and following the IV administration of 116 cc of Optiray 320, CT urogram of the abdomen and pelvis is performed from the lung bases to the proximal femora. Images are reviewed in the axial, sagittal, and coronal planes. IV contrast was administered without complication. A dose lowering technique was utilized adhering to the principles of ALARA. CT DOSE: 3067.85 mGycm FINDINGS: Lung bases: The heart is normal in size and without pericardial effusion. The lung bases are clear. Liver: The contrast-enhanced liver is enlarged, measuring 19 cm in length. The liver demonstrates diffusely diminished attenuation consistent with hepatic steatosis. There is no intrahepatic biliary ductal dilatation. The hepatic veins and portal veins are patent. Gallbladder: Unremarkable. Spleen: Normal in size and attenuation. Pancreas: Unremarkable. Adrenal glands: Unremarkable. Kidneys and ureters: The contrast enhanced kidneys demonstrate mild cortical atrophy and are without hydronephrosis. There are no renal calculi identified on the unenhanced images. The kidneys enhance and excrete symmetrically. There is no enhancing renal cortical mass lesion identified. There are numerous parapelvic cysts. There is no evidence of urothelial lesion within the renal pelvis bilaterally or along the course of either ureter. Abdominal vasculature: The abdominal aorta is normal in course and caliber. Bowel: There are scattered colonic diverticula without CT evidence of acute diverticulitis. No bowel obstruction is seen. The appendix is not identified. Peritoneum: There is no intraperitoneal free air or abdominal ascites. Lymphadenopathy: None. Pelvic viscera: The bladder is decompressed and grossly unremarkable. The prostate and seminal vesicles are normal as imaged. Skeletal structures: No lytic or blastic lesions are seen. There are postoperative changes from L5 -S1 spinal fusion. IMPRESSION: 1. Normal CT urogram. 2. Hepatomegaly and hepatic steatosis. 3. Additional findings as above. Electronically signed by: Stefan Escalera M.D. 08/05/2017 9:23 AM Dictated Date/Time: 08/05/2017 9:13 AM
== END | disposition home or self-care (01) ==
LOC: C.CTS 07:12
PROVIDERS: ATTEND Urology
DX: R16.0 Hepatomegaly, not elsewhere classified (principal); K76.0 Fatty (change of) liver, not elsewhere classified; R31.0 Gross hematuria; N40.1 Benign prostatic hyperplasia with lower urinary tract symptoms; N45.1 Epididymitis; R30.0 Dysuria

== ENCOUNTER → 2017-11-05 | Outpatient (CLI) | payer OTHER ==
[~2017-11-05] MED LIST changes: +ATOR-54 PO; -ATOR10TA82 PO; +CYCL10TA6 PO; -OMEP40CA41 PO; -OPTIRAY 320 IV PRN; +PANT40TA2 PO
[2017-11-05 12:56] LABS: HEMOGLOBIN A1C 7.7 % (4.5-5.6)
== END | disposition home or self-care (01) ==
LOC: C.LABPBG 10:55
PROVIDERS: ATTEND Nurse Practitioner Family
DX: E11.42 Type 2 diabetes mellitus with diabetic polyneuropathy (principal); E78.00 Pure hypercholesterolemia, unspecified